=== PATIENT | female | born 1955 | race Caucasian/White ===

== ENCOUNTER → 2016-09-02 | Day surgery (SDC) | payer BC ==
[~2016-09-02] MED LIST: ALLEGRA ALLERG180 MG PO; FLEXERIL PO; HYDROCHLOROTHIA25 MG PO; HYDROCODON-ACE1 EACH PO; LOTENSIN40 MG PO; MULTI-DAY VITAM1 TAB PO; NASAL ALLERGY16.9 ML INH; OMEPRAZOLE20 M1 PO; VITAL-D RX TABL1 TAB
--- NOTE | ~2016-09-02 | OR ---
Unit #: [id number] #: [id number] Patient: LUISITO THOMPSON I [id number] [address] [place], [place] [address] [id number] O MR#: [id number] NAME: LUISITO THOMPSON I. ROOM: Date of Procedure: 09/02/2016 Admission Date: 09/02/2016 Surgeon: Frank Zuñiga M.D. : 1955 Attending Physician: Frank Zuñiga M.D. Primary Care Physician: Darryl Valencia M.D. OPERATIVE REPORT PRIMARY CARE PHYSICIAN Darryl Valencia M.D. PREOPERATIVE DIAGNOSES Colorectal cancer surveillance. The patient has personal history of colonic polyps removed in the past. PROCEDURE PERFORMED Colonoscopy up to cecum and terminal ileum with excellent preparation and good visualization. POSTOPERATIVE DIAGNOSES Completely normal examination up to cecum. The patient did not have any polyps nor any diverticula or hemorrhoids. RECOMMENDATIONS Repeat colonoscopy in 5 years. SEDATION USED MAC. DESCRIPTION OF PROCEDURE Following detailed explanation of potential risks and complications of a colonoscopy, namely perforation, bleeding, and complication related to sedation, the patient was brought to GI lab and laid in the left lateral decubitus position. A digital rectal examination was performed, which was normal. Lubricated tip of the Olympus video colonoscope was inserted through the anus and advanced under direct vision. The scope was advanced past rectosigmoid into descending colon. No diverticula were noticed in this area. The scope tip was then navigated all the way up to cecum with visualization of the ileocecal valve and the appendiceal orifice. Preparation was excellent with good visualization and photodocumentation was obtained. Last few inches of the terminal ileum were also visualized after intubation of the ileocecal valve and appeared normal. Successive segments of the colonic mucosa were examined upon withdrawal and appeared unremarkable. There being no polyps, mass lesions, AVMs, or diverticula. The patient did not have any hemorrhoids at anal verge. She tolerated the procedure without any postprocedure complications. Dictated by... Frank Zuñiga M.D. Unit #: [id number] #: [id number] Patient: LUISITO THOMPSON I CHRISTIANO/brian TD: 09/02/2016 23:11 JOB #: [id number] CC: . OPERATIVE REPORT X Frank Zuñiga MD PROCEDURE OPERATIVE NOTE
== END | disposition home or self-care (01) ==
LOC: COPS 07:53
DX: Z12.11 Encounter for screening for malignant neoplasm of colon (principal); Z86.010 Personal history of colon polyps; K44.9 Diaphragmatic hernia without obstruction or gangrene; Z87.442 Personal history of urinary calculi
CPT/HCPCS: J2250